=== PATIENT | female | born 1970 | race African-American/Black ===

== ENCOUNTER → 2016-11-23 | Outpatient (CLI) | payer MEDICAID | LOC: WI 13:23 | PROVIDERS: ATTEND Family Medicine | DX: Z12.31 Encounter for screening mammogram for malignant neoplasm of breast (principal) | CPT/HCPCS: 77067; G0202 ==

== ENCOUNTER → 2016-12-06 | Outpatient (CLI) | payer MEDICAID | LOC: WI 13:38 | PROVIDERS: ATTEND Family Medicine | DX: E04.1 Nontoxic single thyroid nodule (principal) | CPT/HCPCS: 76536 ==

== ENCOUNTER 2018-10-07 15:57 | Emergency (ER) | payer MEDICAID ==
--- NOTE | 2018-10-07 17:21 | ER Document Report ---
ED Medical Screen (RME) - General Chief Complaint: Lower Abdominal Pain Stated Complaint: ABDOMINAL PAIN Time Seen by Provider: 10/07/18 17:13 Notes: 48-year-old female patient comes emergency room complaining of severe pain in the right lower quadrant pelvic region. She reports her spouse whom she provided care for, on 09/01/2018. 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 By 09/09/2018 she was having the discomfort in her lower abdomen. The pain was off and on until the past 5 days when it is become very severe. She also feels the pain in her back on the right side. Brief exam shows the lumbar back muscles are all very tender to palpate, and there is tenderness in the right lower abdomen and seems to be in the abdominal wall musculature. No hernias are felt. I have greeted and performed a rapid initial assessment of this patient. A comprehensive ED assessment and evaluation of the patient, analysis of test results and completion of the medical decision making process will be conducted by additional ED providers. TRAVEL OUTSIDE OF THE [place] IN LAST 30 DAYS: No - Related Data Allergies/Adverse Reactions: Penicillins Allergy (Severe, Verified 10/10/16 20:47) Hives tomatoes Allergy (Intermediate, Uncoded 10/10/16 20:47) Hives chocolate Allergy (Mild, Uncoded 10/10/16 20:47) Hives Past Medical History - Social History Chew tobacco use (# tins/day): No Drug Abuse: None - Past Medical History Cardiac Medical History: Reports: Hx Hypertension - MEDS Denies: Hx Heart Attack Pulmonary Medical History: Denies: Hx Asthma Neurological Medical History: Reports: Hx Migraine. Denies: Hx Cerebrovascular Accident, Hx Seizures Renal/ Medical History: Denies: Hx Peritoneal Dialysis GI Medical History: Reports: Hx Gastroesophageal Reflux Disease. Denies: Hx Hepatitis, Hx Hiatal Hernia, Hx Ulcer Infectious Medical History: Denies: Hx Hepatitis Past Surgical History: Reports: Hx Hysterectomy. Denies: Hx Mastectomy, Hx Open Heart Surgery, Hx Pacemaker Physical Exam - Vital signs Vitals: Temp Pulse Resp BP Pulse Ox 98.2 F 82 16 149/90 H 93 10/07/18 16:17 10/07/18 16:17 10/07/18 16:17 10/07/18 16:17 10/07/18 16:17 Course - Vital Signs Vital signs: Temp Pulse Resp BP Pulse Ox 98.2 F 82 16 149/90 H 93 10/07/18 16:17 10/07/18 16:17 10/07/18 17:06 10/07/18 16:17 10/07/18 16:17 Doctor's Discharge - Discharge Referrals: AMOS CHAIDEZ MD [Primary Care Provider] - Follow up as needed
[2018-10-07 17:55] LABS: ABSOLUTE EOSINOPHILS # (AUTO) 0.1 10^3/uL (0.0-0.6); ABSOLUTE LYMPHOCYTES (AUTO) 2.6 10^3/uL (0.5-4.7); ABSOLUTE MONOCYTES (AUTO) 0.3 10^3/uL (0.1-1.4); ABSOLUTE NEUT (AUTO) 4.4 10^3/uL (1.7-8.2); BASOPHILS % (AUTO) 0.5 % (0-2); EOSINOPHILS % (AUTO) 0.7 % (0-6); LYMPHOCYTES % (AUTO) 35.8 % (13-45); MEAN CORPUSCULAR HEMOGLOBIN 25.7 pg (27.0-33.4); MEAN CORPUSCULAR HGB CONC 33.3 g/dL (32.0-36.0); MEAN CORPUSCULAR VOLUME 77 fl (80-97); MONOCYTES % (AUTO) 3.4 % (3-13); PLATELET COUNT 471 10^3/uL (150-450); RED BLOOD COUNT 5.03 10^6/uL (3.72-5.28); RED CELL DISTRIBUTION WIDTH 14.4 % (11.5-14.0); SEGMENTED NEUTROPHILS % (AUTO) 59.6 % (42-78); TOTAL CELLS COUNTED % (AUTO) 100 %; WHITE BLOOD COUNT 7.4 10^3/uL (4.0-10.5)
[2018-10-07 17:58] LABS: APPEARANCE,URINE SLIGHTLY-CLOUDY; BILIRUBIN,URINE NEGATIVE (NEGATIVE); COLOR,URINE YELLOW; GLUCOSE, URINE NEGATIVE (NEGATIVE); KETONES,URINE NEGATIVE (NEGATIVE); LEUKOCYTE ESTERASE,URINE NEGATIVE (NEGATIVE); NITRITE,URINE NEGATIVE (NEGATIVE); PROTEIN,URINE NEGATIVE (NEGATIVE); UROBILINOGEN,URINE NEGATIVE mg/dL (<2.0)
[2018-10-07 18:10] LABS: ALANINE AMINOTRANSFERASE 40 U/L (9-52); ALBUMIN 4.6 g/dL (3.5-5.0); ALKALINE PHOSPHATASE 127 U/L (38-126); ANION GAP 9 (5-19); ASPARTATE AMINO TRANSFERASE 54 U/L (14-36); BILIRUBIN,DIRECT 0.3 mg/dL (0.0-0.4); BILIRUBIN,TOTAL 0.5 mg/dL (0.2-1.3); BLOOD UREA NITROGEN 10 mg/dL (7-20); CALCIUM 9.9 mg/dL (8.4-10.2); CARBON DIOXIDE 28 mmol/L (22-30); CHLORIDE 106 mmol/L (98-107); CREATINE KINASE 112 U/L (30-135); GLUCOSE 98 mg/dL (75-110); POTASSIUM 4.1 mmol/L (3.6-5.0); SODIUM 142.7 mmol/L (137-145)
[2018-10-07] MEDS ORDERED: NAPROXEN 250 MG TABLET PO ONE (18:30)
[2018-10-07] MEDS ORDERED: LIDOCAINE 5% (700 MG) TRANSDERMAL ADH..PATCH TP ONE (18:30)
--- NOTE | 2018-10-07 18:36 | ER Document Report ---
ED General - General Chief Complaint: Lower Abdominal Pain Stated Complaint: ABDOMINAL PAIN Time Seen by Provider: 10/07/18 17:13 Notes: Patient is a 48-year-old female patient with past medical history of lupus, fibromyalgia, sickle cell trait, past surgical history of hysterectomy and oophorectomy, presents complaining of severe pain in the right lower quadrant and pelvic region. She reports her spouse whom she provided care for, on 09/01/2018. 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 By 09/09/2018 she was having the discomfort in her lower abdomen. The pain was off and on until the past 5 days when it is become very severe. She also feels the pain in her back on the right side. States that moving, working out, or any form of range of motion of the pelvic wall worsens the pain. Lying still seems to resolve the pain. She has not tried anything to treat the pain. Scheduled to see her primary doctor tomorrow. No history of similar symptoms in the past. She denies any associated constipation, nausea, vomiting, diarrhea, fever or constitutional symptoms. No trauma to the area. She has not had any swelling to the area. TRAVEL OUTSIDE OF THE [place] IN LAST 30 DAYS: No - Related Data Allergies/Adverse Reactions: Penicillins Allergy (Severe, Verified 10/10/16 20:47) Hives tomatoes Allergy (Intermediate, Uncoded 10/10/16 20:47) Hives chocolate Allergy (Mild, Uncoded 10/10/16 20:47) Hives Past Medical History - General Information source: Patient - Social History Smoking Status: Never Smoker Chew tobacco use (# tins/day): No Frequency of alcohol use: None Drug Abuse: None Lives with: Alone Family History: Reviewed & Not Pertinent Patient has suicidal ideation: No Patient has homicidal ideation: No - Past Medical History Cardiac Medical History: Reports: Hx Hypertension - MEDS Denies: Hx Heart Attack Pulmonary Medical History: Denies: Hx Asthma Neurological Medical History: Reports: Hx Migraine. Denies: Hx Cerebrovascular Accident, Hx Seizures Renal/ Medical History: Denies: Hx Peritoneal Dialysis GI Medical History: Reports: Hx Gastroesophageal Reflux Disease. Denies: Hx Hepatitis, Hx Hiatal Hernia, Hx Ulcer Infectious Medical History: Denies: Hx Hepatitis Past Surgical History: Reports: Hx Hysterectomy. Denies: Hx Mastectomy, Hx Open Heart Surgery, Hx Pacemaker Review of Systems - Review of Systems Notes: Constitutional: Negative for fever. HENT: Negative for sore throat. Eyes: Negative for visual changes. Cardiovascular: Negative for chest pain. Respiratory: Negative for shortness of breath. Gastrointestinal: Positive for right lower abdominal pain Genitourinary: Negative for dysuria. Musculoskeletal: Negative for back pain. Skin: Negative for rash. Neurological: Negative for headaches, weakness or numbness. 10 point ROS negative except as marked above and in HPI. Physical Exam - Vital signs Vitals: Temp Pulse Resp BP Pulse Ox 98.2 F 82 16 149/90 H 93 10/07/18 16:17 10/07/18 16:17 10/07/18 16:17 10/07/18 16:17 10/07/18 16:17 Interpretation: Hypertensive Notes: PHYSICAL EXAMINATION: GENERAL: Well-appearing, well-nourished and in no acute distress. HEAD: Atraumatic, normocephalic. EYES: Pupils equal round and reactive to light, extraocular movements intact, sclera anicteric, conjunctiva are normal. ENT: nares patent, oropharynx clear without exudates. Moist mucous membranes. NECK: Normal range of motion, supple without lymphadenopathy LUNGS: Breath sounds clear to auscultation bilaterally and equal. No wheezes rales or rhonchi. HEART: Regular rate and rhythm without murmurs ABDOMEN: Soft, pain on palpation of the right lower abdomen and inguinal crease in the right side, normoactive bowel sounds. No guarding, no rebound. No masses appreciated. Back: No midline spinal tenderness, sepsis or deformities. Pain present on palpation of the paraspinous muscles in the low lumbar region on the right. EXTREMITIES: Normal range of motion, no pitting or edema. No cyanosis. NEUROLOGICAL: 5 out of 5 strength both distally and proximally bilateral lower extremities. 2+ patellar reflexes bilaterally. No clonus. Sensation grossly intact in the bilateral lower extremities. Patient is able to ambulate without difficulty. PSYCH: Normal mood, normal affect. SKIN: Warm, Dry, normal turgor, no rashes or lesions noted. Course - Re-evaluation Re-evalutation: 10/07/18 18:34 Presentation is very consistent with a musculoskeletal strain of the lower abdominal musculature and low back musculature. Clinical history is not consistent with an acute appendicitis, patient does not but over and the side. Colitis would not make clinical sense given the absence of additional symptoms. Pain is entirely reproducible range of motion of the abdominal wall and back as well as on palpation of the area. Labs broadly unremarkable, normal white blood cell count. Duration of symptoms makes an intra-abdominal pathology highly unlikely. I do not think that a CT scan of the abdomen pelvis is appropriate at this time point. Patient is in agreement. I have advised naproxen, rest of the area, heat and physical therapy. She will see her primary doctor tomorrow. At this time will discharge with return precautions and follow-up recommendations. Verbal discharge instructions given a the bedside and opportunity for questions given. Medication warnings reviewed. Patient is in agreement with this plan and has verbalized understanding of return precautions and the need for primary care follow-up tomorrow as scheduled. - Vital Signs Vital signs: Temp Pulse Resp BP Pulse Ox 98.2 F 82 16 149/90 H 93 10/07/18 16:17 10/07/18 16:17 10/07/18 17:06 10/07/18 16:17 10/07/18 16:17 - Laboratory Result Diagrams: 10/07/18 17:40 10/07/18 17:40 Laboratory results interpreted by me: 10/07/18 10/07/18 17:40 17:40 MCV 77 L MCH 25.7 L RDW 14.4 H Plt Count 471 H AST 54 H Alkaline Phosphatase 127 H Discharge - Discharge Clinical Impression: Right lower quadrant abdominal pain Right low back pain Qualifiers: Chronicity: acute Sciatica presence: without sciatica Qualified Code(s): M54.5 - Low back pain Condition: Good Disposition: HOME, SELF-CARE Additional Instructions: You have been seen in the Emergency Department (ED) for abdominal pain. Your evaluation did not identify a clear cause of your symptoms but is reassuring and does suggest likely be in the muscles of your lower abdominal wall and low back. Please take the naproxen that has been prescribed as directed. Apply heat to the area 20 minutes every 2 hours while awake. See her primary care doctor and consider physical therapy referral. Please follow up with your doctor as soon as possible regarding today's emergent visit and the symptoms that are bothering you. Return to the ED if your abdominal pain worsens or fails to improve, you develop bloody vomiting, bloody diarrhea, you are unable to tolerate fluids due to vomiting, fever greater than 101, or other symptoms that concern you. Prescriptions: Naproxen 500 mg PO BID PRN #14 tablet PRN Reason: Referrals: AMOS CHAIDEZ MD [Primary Care Provider] - Follow up tomorrow
[2018-10-07 18:43] VITALS: BP 144/84
== END 2018-10-07 18:43 | disposition home or self-care (01) ==
LOC: ER 15:57
DX: R10.30 Lower abdominal pain, unspecified (principal); R10.31 Right lower quadrant pain; M54.5 Low back pain; I10 Essential (primary) hypertension; Z88.0 Allergy status to penicillin; Z90.710 Acquired absence of both cervix and uterus
CPT/HCPCS: 99284; 36415; 82550; 85025; 80053; 81001; J3490 ×2

== ENCOUNTER → 2018-11-27 | Outpatient (CLI) | payer MEDICAID ==
--- NOTE | 2018-11-27 15:47 | WOMENS IMAGING REPORT ---
EXAM DESCRIPTION: BILAT SCREENING MAMMO W/CAD COMPLETED DATE/TIME: 11/27/2018 3:26 pm REASON FOR STUDY: Z12.31 ENCOUNTER FOR SCREENING MAMMOGRAM FOR MALIGNANT NEOPLASM OF BREAST Z12.31 ENCNTR SCREEN MAMMOGRAM FOR MALIGNANT NEOPLASM OF [place] COMPARISON: Multiple since 2009 TECHNIQUE: Standard craniocaudal and mediolateral oblique views of each breast recorded using digita l acquisition. LIMITATIONS: None. FINDINGS: No masses, calcifications or architectural distortion. No areas of suspicion. Read with the assistance of CAD. .[facility] - R2 Cenova Version 1.3 .[facility] Imaging - R2 Cenova Version 2.1 .[facility] - R2 Cenova Version 2.4 .[facility] [place]2 Cenova Version 2.4 .[facility] [place] - R2 Sand Buffer Version 9.2 IMPRESSION: NORMAL MAMMOGRAM. BIRADS 1. BREAST DENSITY: c. The breasts are heterogeneously dense, which may obscure small masses. BIRAD: 1 NEGATIVE RECOMMENDATION: ROUTINE SCREENING COMMENT: The patient has been notified of the results by letter per SA requirements. Additional no tification policies are in place for contacting patient with suspicious or incomplete findings. Quality ID #[id number]: The [employer] recommends an annual screening mammogram for women aged 40 years or over. This facility utilizes a reminder system to ensure that all patients receive reminder letters, and/or direct phone calls for appointments. This includes reminders for routine scr eening mammograms, diagnostic mammograms, or other Breast Imaging Interventions when appropriate. Th is patient will be placed in the appropriate reminder system. The [employer] (ACR) has developed recommendations for screening MRI of the breast s in certain patient populations, to be used in conjunction with mammography. Breast MRI surveillanc e may be appropriate for women with more than 20% lifetime risk of developing breast cancer as deter mined by genetic testing, significant family history of the disease, or history of mantle radiation f or Hodgkins Disease. ACR Practice Guidelines 2008. TECHNICAL DOCUMENTATION: FINDING NUMBER: (1) ASSESSMENT: (1) JOB ID: [id number] [employer]- All Rights Reserved Reading location - IP/workstation name: [email or web address]
== END ==
LOC: WI 14:45
PROVIDERS: ATTEND Family Medicine
DX: Z12.31 Encounter for screening mammogram for malignant neoplasm of breast (principal)
CPT/HCPCS: 77067

== ENCOUNTER 2018-12-18 00:30 | Emergency (ER) | payer MEDICAID ==
[2018-12-18] MEDS ORDERED: MORPHINE SULFATE 10 MG/ML INJ IV ONE (01:41)
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
[2018-12-18 02:24] LABS: ABSOLUTE BASOPHILS # (AUTO) 0.1 10^3/uL (0.0-0.2); ABSOLUTE EOSINOPHILS # (AUTO) 0.1 10^3/uL (0.0-0.6); ABSOLUTE LYMPHOCYTES (AUTO) 3.3 10^3/uL (0.5-4.7); ABSOLUTE MONOCYTES (AUTO) 0.4 10^3/uL (0.1-1.4); ABSOLUTE NEUT (AUTO) 3.1 10^3/uL (1.7-8.2); BASOPHILS % (AUTO) 1.5 % (0-2); HEMATOCRIT 38.7 % (36.0-47.0); HEMOGLOBIN 13.1 g/dL (12.0-15.5); LYMPHOCYTES % (AUTO) 46.7 % (13-45); MEAN CORPUSCULAR HEMOGLOBIN 25.4 pg (27.0-33.4); MEAN CORPUSCULAR HGB CONC 33.9 g/dL (32.0-36.0); MEAN CORPUSCULAR VOLUME 75 fl (80-97); MONOCYTES % (AUTO) 6.4 % (3-13); PLATELET COUNT 411 10^3/uL (150-450); RED BLOOD COUNT 5.16 10^6/uL (3.72-5.28); RED CELL DISTRIBUTION WIDTH 14.1 % (11.5-14.0); SEGMENTED NEUTROPHILS % (AUTO) 44.4 % (42-78); TOTAL CELLS COUNTED % (AUTO) 100 %
[2018-12-18] MEDS ORDERED: NORMAL SALINE 1000 ML 1,000 ML IV ONE (03:05)
[2018-12-18 03:16] LABS: ALANINE AMINOTRANSFERASE 54 U/L (9-52); ALBUMIN 4.1 g/dL (3.5-5.0); ALKALINE PHOSPHATASE 127 U/L (38-126); ANION GAP 13 (5-19); ASPARTATE AMINO TRANSFERASE 91 U/L (14-36); BILIRUBIN,DIRECT 0.3 mg/dL (0.0-0.4); BILIRUBIN,TOTAL 0.4 mg/dL (0.2-1.3); BLOOD UREA NITROGEN 12 mg/dL (7-20); CALCIUM 10.3 mg/dL (8.4-10.2); CARBON DIOXIDE 24 mmol/L (22-30); CHLORIDE 104 mmol/L (98-107); GLUCOSE 121 mg/dL (75-110); POTASSIUM 3.8 mmol/L (3.6-5.0); SODIUM 141.2 mmol/L (137-145); TOTAL PROTEIN 7.6 g/dL (6.3-8.2)
--- NOTE | 2018-12-18 03:30 | RADIOLOGY REPORT (SQ) ---
CLINICAL HISTORY: dyspnea, chest pain COMPARISON: None. TECHNIQUE: XR CHEST 1 VIEW 12/18/2018 1:41 AM CDT FINDINGS: Cardiac silhouette is normal in size. Lungs are clear without consolidation, atelectasis, mass or edema. There is no pleural effusion. There is no pneumothorax. There are no acute osseous findings. IMPRESSION: Clear lungs.
--- NOTE | 2018-12-18 05:12 | RADIOLOGY REPORT (SQ) ---
CT angiogram chest with contrast on 12/18/2018 at 4:17 AM CLINICAL INDICATION: Shortness of breath, chest pain TECHNIQUE: Multiple axial images are obtained throughout the chest following the administration of IV contrast. Computer generated 3D reconstructions/MIPS were performed. This exam was performed according to our departmental dose-optimization program, which includes automated exposure control, adjustment of the mA and/or kV according to patient size and/or use of iterative reconstruction technique. Total DLP is 561.7 mGy*cm. COMPARISON: None FINDINGS: There is no pleural or pericardial effusion. There is no thoracic aortic aneurysm or dissection. There are no filling defects within the pulmonary arteries to suggest pulmonary embolus. Limited visualized upper abdomen is unremarkable. There is no thoracic adenopathy. There is minimal bilateral dependent atelectasis. The lungs are otherwise clear. No acute bony abnormality is noted. IMPRESSION: 1. No evidence of pulmonary embolus. 2. No acute abnormality.
[2018-12-18 07:31] VITALS: BP 128/75
--- NOTE | 2018-12-18 21:20 | EKG REPORT ---
SEVERITY:- ABNORMAL ECG - SINUS TACHYCARDIA JOSH, CONSIDER BIATRIAL ABNORMALITIES LEFT VENTRICULAR HYPERTROPHY : Confirmed by: Chana Bustamante MD 18-Dec-2018 21:19:44
== END 2018-12-18 07:38 | disposition home or self-care (01) ==
LOC: ER 00:30
DX: R07.2 Precordial pain (principal); R07.1 Chest pain on breathing; R00.0 Tachycardia, unspecified; R06.02 Shortness of breath; Z88.0 Allergy status to penicillin; Z91.018 Allergy to other foods; Z87.891 Personal history of nicotine dependence
CPT/HCPCS: 93005; 99285; 96361; 96374; 36415; 85025; 80053; 84484; 71045; 71275; 93010; J2270; J7030

== ENCOUNTER 2019-03-18 02:02 | Emergency (ER) | payer MEDICAID ==
--- NOTE | 2019-03-18 05:23 | ER Document Report ---
ED General - General Chief Complaint: Fall Stated Complaint: FALL Time Seen by Provider: 03/18/19 04:35 Notes: Patient is a pleasant 49-year-old female presents with complaint of falling in the bathtub. This actually happened 7 days ago. Patient says that she was a hotel in [place]. She fell onto her left side and her left ribs, left elbow, and left venegas. She has been able to walk but says is very painful to do so and she does have swelling of her left leg. She is able to move her elbow but also says it is painful to do so. No difficulty breathing. No fevers. No abdominal pain. No other complaints at this time. TRAVEL OUTSIDE OF THE [place] IN LAST 30 DAYS: No - Related Data Allergies/Adverse Reactions: Penicillins Allergy (Severe, Verified 03/18/19 02:03) Hives tomatoes Allergy (Intermediate, Uncoded 03/18/19 02:03) Hives chocolate Allergy (Mild, Uncoded 03/18/19 02:03) Hives Past Medical History - Social History Smoking Status: Former Smoker Chew tobacco use (# tins/day): No Frequency of alcohol use: Social Drug Abuse: Marijuana Family History: Reviewed & Not Pertinent Patient has suicidal ideation: No Patient has homicidal ideation: No - Past Medical History Cardiac Medical History: Reports: Hx Hypertension - MEDS Denies: Hx Heart Attack Pulmonary Medical History: Denies: Hx Asthma Neurological Medical History: Reports: Hx Migraine. Denies: Hx Cerebrovascular Accident, Hx Seizures Renal/ Medical History: Denies: Hx Peritoneal Dialysis GI Medical History: Reports: Hx Gastroesophageal Reflux Disease. Denies: Hx Hepatitis, Hx Hiatal Hernia, Hx Ulcer Infectious Medical History: Denies: Hx Hepatitis Past Surgical History: Reports: Hx Hysterectomy, Hx Orthopedic Surgery - back,rt elbow. Denies: Hx Mastectomy, Hx Open Heart Surgery, Hx Pacemaker Review of Systems - Review of Systems Notes: My Normal Review Basic REVIEW OF SYSTEMS: CONSTITUTIONAL : Denies fever, chills, or sweats. Denies recent illness. RESPIRATORY: Denies cough, cold, or chest congestion. Denies shortness of breath, difficulty breathing, or wheezing. GASTROINTESTINAL: Denies abdominal pain. Denies nausea, vomiting MUSCULOSKELETAL: Left rib pain, left elbow pain, left venegas pain. SKIN: Denies rash or skin lesions. NEUROLOGICAL: Denies altered mental status or loss of consciousness. Denies headache. Denies weakness or paralysis or loss of use of either side. Denies problems with gait or speech. Denies sensory or motor loss. ALL OTHER SYSTEMS REVIEWED AND NEGATIVE. Physical Exam - Vital signs Vitals: Temp Pulse Resp BP Pulse Ox 98.0 F 86 16 148/83 H 98 03/18/19 02:29 03/18/19 02:29 03/18/19 02:29 03/18/19 02:03/18/19 02:29 - Notes Notes: General Appearance: Well nourished, alert, cooperative, no acute distress, mild obvious discomfort. Vitals: reviewed, See vital signs table. Head: no swelling or tenderness to the head Eyes: PERRL, EOMI, Conjuctiva clear Lungs: No wheezing, No rales, No rhonci, No accessory muscle use, good air exchange bilaterally. Ribs: Pain to palpation over left lower ribs just at the inferior crease of the left breast. No bruising. No swelling. Abdomen: Normal BS, soft, No rigidity, No abdominal tenderness, No guarding, no rebound, no abdominal masses, no organomegaly Extremities: strength 5/5 in all extremities, good pulses in all extremities, some obvious swelling to the lateral aspect of the left lower leg. Compartments are soft. No pain to the knee or ankle. Some pain to the left elbow. Some pain with flexion extension of the left elbow. No pain into the wrist or hand. No pain into the shoulder. Right-sided extremities are nontender. Skin: warm, dry, appropriate color, no rash Neuro: speech clear, oriented x 3, normal affect, responds appropriately to questions. Course - Re-evaluation Re-evalutation: 03/18/19 06:21 Patient is well-appearing. X-rays were obtained because this swelling arm and leg and pain of ribs. X-rays are negative for fracture. She does not have any evidence of compartment syndrome. Compartments are soft. I feel she safe to be discharged home. I will give her incentive spirometer to use to help prevent pneumonia. I encouraged her return to ER if she has worsening pain, fevers, difficulty breathing, or she feels unwell. Patient agrees with plan will be discharged home. Dictation of this chart was performed using voice recognition software; therefore, there may be some unintended grammatical errors. - Vital Signs Vital signs: Temp Pulse Resp BP Pulse Ox 98.0 F 86 16 148/83 H 98 03/18/19 02:29 03/18/19 02:29 03/18/19 02:29 03/18/19 02:29 03/18/19 02:29 Discharge - Discharge Clinical Impression: Contusion of rib on left side Qualifiers: Encounter type: initial encounter Qualified Code(s): S20.212A - Contusion of left front wall of thorax, initial encounter Contusion of leg, left Qualifiers: Encounter type: initial encounter Qualified Code(s): S80.12XA - Contusion of left lower leg, initial encounter Contusion of arm, left Qualifiers: Encounter type: initial encounter Qualified Code(s): S40.022A - Contusion of left upper arm, initial encounter Condition: Good Disposition: HOME, SELF-CARE Additional Instructions: Please use an incentive spirometer to take a deep breath at least once every 1-2 hours. Please return to the ER immediately if you have worsening swelling in your leg or arm, numbness or weakness into your hand or foot, difficulty breathing, abdominal pain, fevers, or if you feel unwell.
--- NOTE | 2019-03-18 05:53 | RADIOLOGY REPORT (SQ) ---
EXAM DESCRIPTION: XR ELBOW 1-2 VIEWS COMPLETED DATE/TME: 03/18/2019 04:39 CLINICAL HISTORY: 49 years, Female, trauma COMPARISON: None. NUMBER OF VIEWS: 2 TECHNIQUE: 2 view left elbow LIMITATIONS: None. FINDINGS: Negative for fracture or dislocation. Tiny olecranon spur. IMPRESSION: No acute abnormality copyright 2010 [employer]- All Rights Reserved
--- NOTE | 2019-03-18 06:04 | RADIOLOGY REPORT (SQ) ---
EXAM DESCRIPTION: XR TIBIA FIBULA 2 VIEWS COMPLETED DATE/TME: 03/18/2019 04:39 CLINICAL HISTORY: 49 years, Female, trauma COMPARISON: None. NUMBER OF VIEWS: 2 TECHNIQUE: 2 view left tibia fibula LIMITATIONS: None. FINDINGS: Negative for fracture or dislocation. Soft tissues are unremarkable IMPRESSION: Negative exam copyright 2011 [employer]- All Rights Reserved
--- NOTE | 2019-03-18 06:05 | RADIOLOGY REPORT (SQ) ---
EXAM DESCRIPTION: XR RIBS UNILATERAL WITH CHEST COMPLETED DATE/TME: 03/18/2019 04:39 CLINICAL HISTORY: 49 years, Female, trauma COMPARISON: Chest x-ray 02/12/2014 NUMBER OF VIEWS: 3 TECHNIQUE: Frontal view the chest and 2 views of the left ribs LIMITATIONS: None. FINDINGS: Heart size is normal. Lungs are clear. No pneumothorax negative for left rib fracture IMPRESSION: Negative exam copyright 2010 [employer]- All Rights Reserved
[2019-03-18 06:43] VITALS: BP 149/100
== END 2019-03-18 06:43 | disposition home or self-care (01) ==
LOC: ER 02:02
DX: S20.212A Contusion of left front wall of thorax, initial encounter (principal); S80.12XA Contusion of left lower leg, initial encounter; S40.022A Contusion of left upper arm, initial encounter; R07.81 Pleurodynia; M25.522 Pain in left elbow; M79.662 Pain in left lower leg; M79.89 Other specified soft tissue disorders; W18.2XXA Fall in (into) shower or empty bathtub, initial encounter; Y92.59 Other trade areas as the place of occurrence of the external cause; I10 Essential (primary) hypertension; F12.10 Cannabis abuse, uncomplicated; Z87.891 Personal history of nicotine dependence; Z88.0 Allergy status to penicillin; Z91.018 Allergy to other foods
CPT/HCPCS: 99283